=== PATIENT | female | born 1955 | race Caucasian/White ===

== ENCOUNTER → 2020-02-13 | Outpatient (CLI) | payer OTHER ==
[~2020-02-13] MED LIST: CYCLOBENZAPRINE10 MG PO; MEDROL DOSEPAK 24 MG PO; MOBIC7.5 MG PO; PREDNISONE 20 M20 MG PO
== END ==
LOC: CT 09:37
DX: N28.89 Other specified disorders of kidney and ureter (principal); N28.1 Cyst of kidney, acquired
CPT/HCPCS: 36415; 82565; 84520; Q9967

== ENCOUNTER 2020-05-11 10:45 | Emergency (ER) | payer OTHER ==
[~2020-05-11 10:45] MED LIST changes: -PREDNISONE 20 M20 MG PO
[2020-05-11] MEDS ORDERED: PREDNISONE 20 M20 MG PO (13:11)
== END 2020-05-11 13:20 | disposition home or self-care (01) ==
LOC: ER1 10:45
DX: M62.838 Other muscle spasm (principal); E11.9 Type 2 diabetes mellitus without complications; E78.5 Hyperlipidemia, unspecified; I10 Essential (primary) hypertension; K21.9 Gastro-esophageal reflux disease without esophagitis
CPT/HCPCS: 96372; 99283; J2360; J2930

== ENCOUNTER → 2020-09-25 | Outpatient (CLI) | payer SELFPAY ==
[~2020-09-25] MED LIST changes: +OMEPRAZOLE40 MG PO; +PREDNISONE 20 M20 MG PO
== END ==
LOC: CT 12:54
DX: N28.1 Cyst of kidney, acquired (principal)
CPT/HCPCS: 36415; 82565; Q9967

== ENCOUNTER 2021-10-15 10:40 | Emergency (ER) | payer SELFPAY ==
[2021-10-15 12:35] LABS: HEMOGLOBIN 16.3 gm/dl (12.3-15.3); RED BLOOD COUNT 5.62 M/UL (4.00-5.10); WHITE BLOOD COUNT 8.7 K/UL (4.5-11.0)
[2021-10-15 12:53] LABS: BUN/CREATININE RATIO 27 (0-10)
[2021-10-15] MEDS ORDERED: MACROBID 100 M100 M1 PO (13:27)
[2021-10-15] MEDS ORDERED: OMNICEF 300 MG300 MG PO (13:33)
== END 2021-10-15 14:30 | disposition home or self-care (01) ==
LOC: ER1 10:40
PROVIDERS: Physician Assistant
DX: U07.1 COVID-19 (principal); N39.0 Urinary tract infection, site not specified; R31.9 Hematuria, unspecified; E11.9 Type 2 diabetes mellitus without complications; I10 Essential (primary) hypertension; Z87.891 Personal history of nicotine dependence
CPT/HCPCS: 71045; 80053; 81001; 82550; 82553; 84484; 85025; 87086; 93005; 99284; J1885; J2405; U0002